=== PATIENT | female | born 1985 | race Caucasian/White ===

== ENCOUNTER 2019-02-23 21:26 | Emergency (ER) | payer BC ==
[~2019-02-23] VITALS: Ht 162.6 cm; Wt 54.4 kg
--- NOTE | 2019-02-23 21:29 | NUR ---
ER Nurse Note: Called pt; reported she went to the restroom.
--- NOTE | 2019-02-23 21:45 | NUR ---
ED Nurse Note: Recieved pt from home, here with c/o allergic reaction from treatment given today, pt has been recieving allergy shots to prevent allergies from cats at home, has had several treatments but after tzx today pt noted with rash and flushing to face w/ itching, pt denies sob or labored breathing, or any other complaints or discomforts.
[2019-02-23] MEDS ORDERED: PREDNISONE20 MG ORAL (22:04)
[2019-02-23] MEDS ORDERED: BENADRYL25 MG ORAL (22:04)
--- NOTE | 2019-02-23 22:04 | Emergency Room Report ---
History of Present Illness General Chief Complaint: Skin Rash/Abscess Source: Patient Present Illness HPI This is a 33-year-old female with allergies to cats. She is been getting allergy shots for it. She has 2 cats also. She presents with allergic reaction. She had allergy shots today. She then broke out with a rash and itchiness. This started this afternoon. Is improved since then but she still has redness and itchiness to her face. Her dosage of her allergy shot was increased today. Denies any respiratory complaint. Denies any wheezing. Allergies: Coded Allergies: Dust (Verified Allergy, Unknown, 02/23/19) Uncoded Allergies: CATS (Allergy, Unknown, 02/23/19) DOGS (Allergy, Unknown, 02/23/19) TREE (Allergy, Unknown, 02/23/19) Patient History Past Medical History: see triage record, old chart reviewed Past Surgical History: none Pertinent Family History: none Social History: Denies: smoking Last Menstrual Period: IDU Now: No Immunizations: other Reviewed Nursing Documentation: PMH: Agreed; PSxH: Agreed Review of Systems Eye: Denies: eye pain, blurred vision ENT: Denies: ear pain, nose congestion, throat swelling Respiratory: Denies: cough, shortness of breath Cardiovascular: Denies: chest pain, palpitations Gastrointestinal: Denies: abdominal pain, diarrhea, nausea, vomiting Musculoskeletal: Denies: back pain, joint pain Skin: Reports: rash Neurological: Denies: headache, numbness Endocrine: Denies: increased thirst, increased urine Hematologic/Lymphatic: Denies: easy bruising All Other Systems: negative except mentioned in HPI Physical Exam Vital Signs Date Time Temp Pulse Resp B/P (MAP) Pulse Ox O2 Delivery O2 Flow Rate FiO2 02/23/19 21:33 98.4 106 18 113/76 (88) 98 Room Air Vitals normal Sp02 EP Interpretation: reviewed, normal General Appearance: well appearing, no apparent distress, alert Head: normocephalic, atraumatic Eyes: bilateral eye PERRL, bilateral eye EOMI ENT: hearing grossly normal, normal pharynx Neck: full range of motion, supple, no meningismus Respiratory: chest non-tender, lungs clear, normal breath sounds Cardiovascular #1: regular rate, rhythm, no murmur Gastrointestinal: normal bowel sounds, non tender, no mass, no organomegaly, no bruit, non-distended Musculoskeletal: back normal, gait/station normal, normal range of motion Neurologic: alert, oriented x3 Psychiatric: mood/affect normal Skin: other - Patient with hyperemia of her face and urticaria to the upper back area. Medical Decision Making Diagnostic Impression: Primary Impression: Allergic reaction Qualified Codes: T78.40XA - Allergy, unspecified, initial encounter ER Course Presents with allergic reaction probably secondary to increasing concentration of her allergy shots. No evidence of anaphylaxis. No respiratory issue. Better after IV medication. Will discharge home. Last Vital Signs Date Time Temp Pulse Resp B/P (MAP) Pulse Ox O2 Delivery O2 Flow Rate FiO2 02/23/19 21:33 98.4 106 18 113/76 (88) 98 Room Air Status: improved Disposition: HOME, SELF-CARE Condition: Stable Scripts Prednisone* (PREDNISONE*) 20 Mg Tablet 40 MG ORAL DAILY, #10 TAB Prov: Clay Ansari MD 02/23/19 Diphenhydramine Hcl* (BENADRYL*) 25 Mg Capsule 50 MG ORAL Q6H PRN for Itching, #30 CAP Prov: Clay Ansari MD 02/23/19 Additional Instructions: Follow-up with your doctor in 7 days. Return if symptoms worsen. Clay Ansari MD Feb 23, 2019 22:04
[2019-02-23] MEDS ORDERED: Solu-MEDROL 125mg Inj IVP ONE (22:15)
[2019-02-23] MEDS ORDERED: DiphenhydrAMINE 50mg/ml Inj IVP ONE (22:15)
[2019-02-23 22:45] VITALS: BP 119/71
--- NOTE | 2019-02-23 23:00 | NUR ---
ED Nurse Note:ER DISCHARGE NOTE: Patient is cleared to be discharged per ERMD, pt is aox4, on room air, with stable vital signs. pt was given dc and prescription instructions, pt was able to verbalize understanding, pt id band and iv site removed without complications. pt is able to ambulate with steady gait. pt took all belongings.
== END 2019-02-23 23:00 | disposition home or self-care (01) ==
LOC: EDSEX 21:26 → EMR 22:55
DX: T78.40XA Allergy, unspecified, initial encounter (principal); X58.XXXA Exposure to other specified factors, initial encounter; Z91.09 Other allergy status, other than to drugs and biological substances
CPT/HCPCS: 96374; 96375; 99284; J1200; J2930